=== PATIENT | female | born 1950 | race Caucasian/White ===

== ENCOUNTER → 2017-04-24 | Outpatient (CLI) | payer MEDICARE, BC ==
[~2017-04-24] MED LIST: ADVIL200 MG PO; ALEVE220 M1 PO; ZYVOX600 MG PO
--- NOTE | ~2017-04-24 | PUL ---
PATIENT'S NAME: YUMIKO FENTON [facility] AGE: 67 Y [address] ROOM: [place] [id number] LOCATION: [facility] ADMIT DATE: 04/24/2017 Pulmonary DISCHARGE DATE: FAMILY PHYSICIAN: CHANTE MILAN MD ATTENDING PHYSICIAN: JUSTINE LOUISE NAME OF PROCEDURE: Pulmonary Function Test DATE OF PROCEDURE: April 24, 2017 TECH: ATripe, [employer] REASON FOR EXAM: Shortness of breath RESULTS: 1. FVC was 2.9 liters which is 104% of predicted and normal, FEV1 was 2.14 liters which is 101% of predicted and normal, and FEV1/FVC was 74% and normal. The flow volume curve did not reveal any significant airflow limitation. After bronchodilator administration FVC decreased to 2.76 liters and FEV1 increased to 2.28 liters which is a 6% increase. FEV1/FVC was 83%. 2. DLCO and adjusted DLCO were 17 which is 85% of predicted and normal. 3. Total lung capacity was 4.08 liters which is 96% of predicted and normal, and residual volume was 1.18 liters which is 72% of predicted and normal. PHYSICIAN INTERPRETATION: The patient has no airflow limitation and no significant bronchodilator response. Her diffusion capacity is normal. There is no evidence of restrictive lung disease. Essentially this is a normal pulmonary function test. MD PALOMA STEWARD/gabriela /[id number] dtt: 04/26/17 0729 ASPEN RADU F dtd: 04/25/17 1142
== END | disposition disaster alternative care site (69) ==
LOC: GRTH 12:48
DX: J32.9 Chronic sinusitis, unspecified (principal)

== ENCOUNTER → 2017-05-14 | Outpatient (CLI) | payer MEDICARE, BC ==
--- NOTE | ~2017-05-14 | PUL ---
PATIENT'S NAME: YUMIKO FENTON [facility] AGE: 67 Y [address] ROOM: [place] [address] LOCATION: [facility] ADMIT DATE: 05/14/2017 Pulmonary DISCHARGE DATE: FAMILY PHYSICIAN: CHANTE MILAN MD ATTENDING PHYSICIAN: JUSTINE LOUISE NAME OF PROCEDURE: Home sleep test DATE OF PROCEDURE: 05/14/2017 TECH: [facility]: Patient underwent home sleep testing using a type III device and was studied for 8 hours 46 minutes. In that time there were 16 apneas 8 of which were obstructive, 8 of which were central, and 47 hypopneas for an overall apnea-hypopnea index mildly elevated at 7.2 events per hour. Supine apnea/hypopnea index was 9 events per hour. Non supine was less than 5 events per hour. Oxygen saturations ranged from 85-93%. Heart rate ranged from 57 to 93 beats per minute. IMPRESSION: Mild essentially positional obstructive sleep apnea. PLAN: The patient will receive results from the ordering provider. MD MANNY BALL/ /[id number] dtt: 05/25/17 1303 Bk David E. dtd: 05/18/17 1305
== END | disposition disaster alternative care site (69) ==
LOC: GSLP 04-11 13:30
DX: G47.10 Hypersomnia, unspecified (principal); G47.33 Obstructive sleep apnea (adult) (pediatric); R06.83 Snoring
CPT/HCPCS: G0399